=== PATIENT | female | born 1945 | race Caucasian/White ===

== ENCOUNTER → 2019-02-26 | Outpatient (REF) | payer MEDICARE, OTHER | LOC: M SFHCPLAZ 16:52 | PROVIDERS: ATTEND Dermatology | DX: D04.5 Carcinoma in situ of skin of trunk (principal); C44.529 Squamous cell carcinoma of skin of other part of trunk; C44.519 Basal cell carcinoma of skin of other part of trunk ==

== ENCOUNTER → 2019-06-14 | Outpatient (REF) | payer MEDICARE, OTHER | LOC: M LAB REF 18:50 | PROVIDERS: ATTEND Dermatology | DX: L90.5 Scar conditions and fibrosis of skin (principal) ==

== ENCOUNTER → 2019-07-20 | Outpatient (REF) | payer MEDICARE, OTHER | LOC: M LAB REF 19:01 | PROVIDERS: ATTEND Dermatology | DX: C44.529 Squamous cell carcinoma of skin of other part of trunk (principal) ==

== ENCOUNTER 2022-04-02 10:07 | Inpatient (IN) | payer MEDICARE, OTHER ==
[~2022-04-02] VITALS: Ht 165.1 cm; Wt 66.1 kg
[2022-04-02 11:17] LABS: BASO # 0.1 10^3/uL (0.0-0.2); BASO % 0.3 % (0.0-1.0); EOS % 0.1 % (0.0-3.0); HEMATOCRIT 45.3 % (36.0-47.0); LYMPH # 1.3 10^3/uL (1.5-5.0); LYMPH % 7.4 % (24.0-44.0); MEAN CORPUSCULAR HEMOGLOBIN 32.7 pg (27.0-33.0); MEAN CORPUSCULAR HGB CONC 35.3 g/dl (32.0-36.5); MEAN CORPUSCULAR VOLUME 92.6 fl (80.0-96.0); MONO # 1.4 10^3/uL (0.0-0.8); MONO % 7.6 % (2.0-8.0); NEUTROPHILS # 15.1 10^3/uL (1.5-8.5); NEUTROPHILS % 83.9 % (36.0-66.0); PLATELET COUNT, AUTOMATED 165 10^3/uL (150-450); RED BLOOD COUNT 4.89 10^6/uL (4.00-5.40)
[2022-04-02 11:28] LABS: INR 1.07; PROTHROMBIN TIME 14.3 SECONDS (12.7-14.5)
[2022-04-02 11:29] LABS: PARTIAL THROMBOPLASTIN TIME 30.9 SECONDS (25.9-37.0)
[2022-04-02 11:55] LABS: CK-MB VALUE MASS 2.3 NG/ML (<3.6); MB/CK RELATIVE INDEX 0.93 (< OR =4)
[2022-04-02 11:55] LABS: ALBUMIN 3.5 GM/DL (3.2-5.2); BILIRUBIN,DIRECT 0.3 MG/DL (0.0-0.2); BILIRUBIN,TOTAL 0.9 MG/DL (0.2-1.0); CALCIUM LEVEL 9.2 MG/DL (8.8-10.2); GLOMERULAR FILTRATION RATE 57.4 (>39); POTASSIUM SERUM 3.1 MEQ/L (3.5-5.1); TOTAL PROTEIN 7.5 GM/DL (6.4-8.2)
[2022-04-02 12:09] LABS: RSV AMPLIFICATION NEGATIVE (NEGATIVE)
[2022-04-02] MEDS ORDERED: ONDANSETRON 4MG 2ML VIAL IV ONE (12:15)
[2022-04-02 12:34] LABS: CK-MB VALUE MASS 2.6 NG/ML (<3.6); MB/CK RELATIVE INDEX 1.05 (< OR =4)
[2022-04-02] MEDS ORDERED: ISOVUE-370 76% 100ML VIAL As Ordered ONE (12:34)
[2022-04-02] MEDS ORDERED: PROMETHAZINE 25MG/ML 1ML VIAL IV ONE (13:55)
[2022-04-02] MEDS ORDERED: cefTRIAXone SOD 2 GM in D5W MINI-BAG PLUS 50 ML IV ONE (15:00)
[2022-04-02] MEDS ORDERED: NS 1,000 ML IV ONE (15:20)
[2022-04-02] MEDS ORDERED: PRAV40TA2 PO (16:49)
[2022-04-02] MEDS ORDERED: ALBU8.5H INH (16:49)
[2022-04-02] MEDS ORDERED: LABE100T6 PO (16:49)
[2022-04-02] MEDS ORDERED: BENA-8 PO (16:49)
[2022-04-02] MEDS ORDERED: POTA10CA32 PO (16:49)
[2022-04-02] MEDS ORDERED: PARO20TA3 PO (16:49)
[2022-04-02] MEDS ORDERED: BENA1TAB24 PO (16:49)
[2022-04-02] MEDS ORDERED: HOME MED LIST COMPLETE! XX SCH (16:50)
[2022-04-02] MEDS ORDERED: MOM 30ML SUSPENSION UDC PO PRN (17:15)
[2022-04-02] MEDS ORDERED: ACETAMINOPHEN TAB 650MG DOSE (2X325MG) PO PRN (17:15)
[2022-04-02] MEDS ORDERED: MAALOX 30 ML SUSP *UDC PO PRN (17:15)
[2022-04-02] MEDS ORDERED: NS IV ONE (17:15)
[2022-04-02] MEDS ORDERED: LEVALBUTEROL 1.25 MG/0.5 ML CONCENTRATE NEB INH PRN (17:25)
[2022-04-02] MEDS ORDERED: hydrALAZINE 20MG/ML 1ML VIAL (J0360 PER 20MG) IV PRN (17:25)
[2022-04-02] MEDS ORDERED: ONDANSETRON 4MG 2ML VIAL IV PRN (18:05)
[2022-04-02] MEDS ORDERED: LABETALOL 100MG/20ML VIAL IV STA (18:34)
[2022-04-02 18:40] LABS: ABG BASE EXCESS -0.6 (-2.0-2.0); ABG HCO3 26.8 MEQ/L (22.0-26.0); ABG O2 SATURATION 88.5 % (95.0-99.0); ABG PARTIAL PRESSURE CO2 54.4 mmHg (35.0-45.0); ABG PARTIAL PRESSURE O2 58.1 mmHg (75.0-100.0); ABG STANDARD HCO3 23.7 MEQ/L (22.0-26.0); ABG TOTAL CO2 28.4 MEQ/L (23.0-31.0)
[2022-04-02] MEDS: PIPERACILLIN/TAZOBACTAM SOD 3.375 GM in D5W MINI-BAG PLUS 50 ML IV SCH ×2 (18:51→23:59)
[2022-04-02] MEDS ORDERED: POTASSIUM CHLORIDE 10MEQ SR TABLET PO ONE (19:00)
[2022-04-02] MEDS ORDERED: methylPREDNISolone 125MG 2ML VIAL IV ONE (19:00)
[2022-04-02] MEDS ORDERED: ASPIRIN 81 MG CHEW TABLET PO ONE (19:05)
[2022-04-02] MEDS: LEVALBUTEROL 1.25 MG/0.5 ML CONCENTRATE NEB INH SCH ×2 (19:08→23:51)
[2022-04-02] MEDS: NS 1,000 ML IV SCH (19:15)
[2022-04-02] MEDS: KCL 10MEQ/100ML SWI (KRUN) 10 MEQ in IV 1 EA IV SCH ×3 (19:19→21:46)
[2022-04-02 19:47] LABS: MB/CK RELATIVE INDEX 1.41 (< OR =4)
[2022-04-02] MEDS ORDERED: DOXYCYCLINE HYCLATE 100 MG in D5W MINI-BAG PLUS 100 ML IV SCH (20:00)
[2022-04-02] MEDS ORDERED: methylPREDNISolone 125MG 2ML VIAL IV SCH (20:00)
[2022-04-02] MEDS ORDERED: LABETALOL 100MG TAB PO SCH (21:00)
[2022-04-02] MEDS: guaiFENesin ER 600 MG TAB PO SCH (21:45)
[2022-04-02] MEDS: DOCUSATE SODIUM 100MG CAPSULE PO SCH (21:45)
[2022-04-02 21:59] LABS: CK-MB VALUE MASS 9.1 NG/ML (<3.6); MB/CK RELATIVE INDEX 2.74 (< OR =4)
[2022-04-02 22:06] LABS: ABG BASE EXCESS -1.2 (-2.0-2.0); ABG HCO3 24.4 MEQ/L (22.0-26.0); ABG O2 SATURATION 94.1 % (95.0-99.0); ABG PARTIAL PRESSURE CO2 43.9 mmHg (35.0-45.0); ABG PARTIAL PRESSURE O2 70.1 mmHg (75.0-100.0); ABG STANDARD HCO3 23.4 MEQ/L (22.0-26.0); ABG TOTAL CO2 25.8 MEQ/L (23.0-31.0); ABG pH (ARTERIAL) 7.363 UNITS (7.350-7.450)
[2022-04-02 22:30] VITALS: BP 126/65
[2022-04-02 23:00] VITALS: BP 128/60
[2022-04-03] VITALS (12 sets, daily range): BP systolic 110–162; BP diastolic 58–74; O2SAT 90
[2022-04-03 01:23] LABS: MB/CK RELATIVE INDEX 4.4 (< OR =4)
[2022-04-03] MEDS ORDERED: HEPARIN SOD (PORCINE) 5000UNITS/ML 1ML VIAL/SYRINGE IV PRN (01:55)
[2022-04-03] MEDS: methylPREDNISolone 125MG 2ML VIAL IV SCH ×2 (02:06→08:16)
[2022-04-03] MEDS ORDERED: HEPARIN SOD (PORCINE) 5000UNITS/ML 1ML VIAL/SYRINGE IV ONE (03:00)
[2022-04-03] MEDS ORDERED: HEPARIN DRIP 25,000 UNITS in IV 1 EA IV SCH (03:00)
[2022-04-03] MEDS: LEVALBUTEROL 1.25 MG/0.5 ML CONCENTRATE NEB INH SCH ×2 (03:15→07:18)
[2022-04-03] MEDS: NS 1,000 ML IV SCH (03:28)
[2022-04-03 04:14] LABS: BASO % 0.1 % (0.0-1.0); HEMATOCRIT 40.9 % (36.0-47.0); LYMPH # 1.2 10^3/uL (1.5-5.0); LYMPH % 8.5 % (24.0-44.0); MEAN CORPUSCULAR HEMOGLOBIN 32.2 pg (27.0-33.0); MEAN CORPUSCULAR HGB CONC 33.5 g/dl (32.0-36.5); MONO # 0.3 10^3/uL (0.0-0.8); MONO % 2.3 % (2.0-8.0); NEUTROPHILS # 12.1 10^3/uL (1.5-8.5); NEUTROPHILS % 88.6 % (36.0-66.0); PLATELET COUNT, AUTOMATED 138 10^3/uL (150-450); RED BLOOD COUNT 4.26 10^6/uL (4.00-5.40); WHITE BLOOD COUNT 13.7 10^3/uL (4.0-10.0)
[2022-04-03 04:25] LABS: HEMOGLOBIN 13.7 g/dl (12.0-15.5)
[2022-04-03 04:49] LABS: CK-MB VALUE MASS 15.5 NG/ML (<3.6); MB/CK RELATIVE INDEX 5.02 (< OR =4)
[2022-04-03 04:52] LABS: CALCIUM LEVEL 8.3 MG/DL (8.8-10.2); CREATININE FOR GFR 1.11 MG/DL (0.55-1.30); GLOMERULAR FILTRATION RATE 50.9 (>39); MAGNESIUM LEVEL 1.9 MG/DL (1.8-2.4); POTASSIUM SERUM 3.6 MEQ/L (3.5-5.1)
[2022-04-03] MEDS: PIPERACILLIN/TAZOBACTAM SOD 3.375 GM in D5W MINI-BAG PLUS 50 ML IV SCH (06:19)
[2022-04-03 07:23] LABS: CK-MB VALUE MASS 16.8 NG/ML (<3.6); MB/CK RELATIVE INDEX 5.2 (< OR =4)
[2022-04-03] MEDS ORDERED: METH40VIAL IM (07:40)
[2022-04-03] MEDS ORDERED: ZOSY1SOL5 IV (07:40)
[2022-04-03] MEDS ORDERED: MUCI600T31 PO (07:40)
[2022-04-03] MEDS ORDERED: DOXY-342 PO (07:40)
[2022-04-03] MEDS ORDERED: ATOR1TAB21 PO (07:40)
[2022-04-03] MEDS ORDERED: ASPI81CH8 PO (07:40)
[2022-04-03] MEDS ORDERED: METO1TAB7 PO (07:40)
[2022-04-03] MEDS: guaiFENesin ER 600 MG TAB PO SCH (08:15)
[2022-04-03] MEDS: DOCUSATE SODIUM 100MG CAPSULE PO SCH (08:15)
[2022-04-03] MEDS ORDERED: ATORVASTATIN 20 MG TAB PO SCH (09:00)
[2022-04-03] MEDS ORDERED: PARoxetine 20MG TABLET PO SCH (09:00)
[2022-04-03] MEDS ORDERED: METOPROLOL SUCC (TopROL XL) 50MG **XL** TAB PO SCH (09:00)
[2022-04-03] MEDS ORDERED: PRAVASTATIN 20 MG TAB PO SCH (09:00)
[2022-04-03] MEDS ORDERED: ENOXAPARIN 40MG/0.4ML SYRINGE (J1650 PER 10MG) SC SCH (09:00)
[2022-04-03] MEDS ORDERED: ASPIRIN 81 MG CHEW TABLET PO SCH (09:00)
[2022-04-03 10:11] LABS: CK-MB VALUE MASS 15.6 NG/ML (<3.6); MB/CK RELATIVE INDEX 5.32 (< OR =4)
== END 2022-04-03 09:46 | disposition short-term general hospital (02) | DRG 193 ==
LOC: M ED 10:07 → M ED INP 17:11 → ENRESERV 20:31 → M ICU 21:20
PROVIDERS: ADMIT Internal Medicine; ATTEND Internal Medicine
DX: J18.9 Pneumonia, unspecified organism (principal); I21.4 Non-ST elevation (NSTEMI) myocardial infarction; J44.1 Chronic obstructive pulmonary disease with (acute) exacerbation; J44.0 Chronic obstructive pulmonary disease with (acute) lower respiratory infection; E87.6 Hypokalemia; R09.02 Hypoxemia; I10 Essential (primary) hypertension; R00.0 Tachycardia, unspecified; E78.5 Hyperlipidemia, unspecified; L40.9 Psoriasis, unspecified; R11.2 Nausea with vomiting, unspecified; I16.0 Hypertensive urgency; Z79.899 Other long term (current) drug therapy; Z88.8 Allergy status to other drugs, medicaments and biological substances; Z87.891 Personal history of nicotine dependence

== ENCOUNTER 2022-07-26 17:51 | Emergency (ER) | payer MEDICARE, OTHER ==
[~2022-07-26] VITALS: Ht 162.6 cm; Wt 65.0 kg
[~2022-07-26 17:51] MED LIST: ALBU8.5H INH; ASPI81CH8 PO; ATOR1TAB21 PO; BENA-8 PO; BENA1TAB24 PO; DOXY100C81 PO; LABE100T6 PO; METH40VIAL IM; METO1TAB7 PO; MUCI600T31 PO; PARO20TA3 PO; POTA10CA33 PO; PRAV40TA2 PO; ZOSY1SOL5 IV
[2022-07-26] MEDS ORDERED: IPRATROPIUM 0.5MG/ALBUTEROL 2.5MG INH SOL UD 3ML (DUONEB) NEB ONE (19:45)
[2022-07-26] MEDS ORDERED: valACYclovir HCL 500 MG TAB PO ONE (19:45)
[2022-07-26 20:53] LABS: BASO # 0.1 10^3/uL (0.0-0.2); BASO % 0.6 % (0.0-1.0); EOS % 0.4 % (0.0-3.0); HEMATOCRIT 46.9 % (36.0-47.0); HEMOGLOBIN 16.3 g/dl (12.0-15.5); LYMPH # 2.2 10^3/uL (1.5-5.0); LYMPH % 22.5 % (24.0-44.0); MEAN CORPUSCULAR HEMOGLOBIN 30.9 pg (27.0-33.0); MEAN CORPUSCULAR HGB CONC 34.8 g/dl (32.0-36.5); MONO # 1.2 10^3/uL (0.0-0.8); MONO % 12.3 % (2.0-8.0); NEUTROPHILS # 6.3 10^3/uL (1.5-8.5); NEUTROPHILS % 63.6 % (36.0-66.0); PLATELET COUNT, AUTOMATED 120 10^3/uL (150-450); RED BLOOD COUNT 5.27 10^6/uL (4.00-5.40); WHITE BLOOD COUNT 9.9 10^3/uL (4.0-10.0)
[2022-07-26 21:20] LABS: CK-MB VALUE MASS < 1.0 NG/ML (<3.6)
[2022-07-26 21:21] LABS: MAGNESIUM LEVEL 1.8 MG/DL (1.8-2.4)
[2022-07-26 21:23] LABS: BLOOD UREA NITROGEN 11 MG/DL (9-23); CALCIUM LEVEL 8.9 MG/DL (8.3-10.6); CARBON DIOXIDE LEVEL 28 MMOL/L (20-31); CHLORIDE LEVEL 103 MMOL/L (98-107); CPK CREATINE PHOSPHOKINASE 21 U/L (34-145); CREATININE FOR GFR 1.17 MG/DL (0.55-1.30); GLOMERULAR FILTRATION RATE 47.9 (>39); GLUCOSE, FASTING 109 MG/DL (74-106); MB/CK RELATIVE INDEX 4.76 (< OR =4); SODIUM LEVEL 139 MMOL/L (136-145)
[2022-07-26 21:38] LABS: APPEARANCE, URINE MANUAL CLEAR (CLEAR); COLOR, URINE MANUAL YELLOW (YELLOW)
[2022-07-26 21:40] LABS: BILIRUBIN, URINE MANUAL NEGATIVE (NEGATIVE); BLOOD URINE MANUAL NEGATIVE (NEGATIVE); GLUCOSE, URINE (UA) MANUAL NEGATIVE (NEGATIVE); KETONE, URINE MANUAL NEGATIVE (NEGATIVE); LEUKOCYTE ESTERASE, URINE MAN TRACE (NEGATIVE); NITRITE, URINE MANUAL NEGATIVE (NEGATIVE); PROTEIN, URINE MANUAL 1+ mg/dL (NEGATIVE); UROBILINOGEN, URINE MANUAL NORMAL (NORMAL)
[2022-07-26 21:48] LABS: RBC, URINE 0-1 /hpf (0-3); SQUAMOUS EPITHELIAL CELL URINE LARGE AMOUNT /hpf (SMALL AMT); WBC, URINE 15-20 /hpf (0-3)
[2022-07-26 21:49] LABS: BACTERIA, URINE MOD AMOUNT; HYALINE CAST, URINE TNTC /lpf (0-1); MUCUS, URINE LARGE AMOUNT (NEGATIVE)
[2022-07-26] MEDS ORDERED: ONDANSETRON 4MG 2ML VIAL IV ONE (22:10)
[2022-07-26] MEDS ORDERED: predniSONE 20 MG TAB PO ONE (22:15)
[2022-07-26] MEDS ORDERED: AZITHROMYCIN 250MG TABLET PO ONE (22:15)
[2022-07-26] MEDS ORDERED: NITR-67 PO (22:26)
[2022-07-26] MEDS ORDERED: PRED20TA PO (22:26)
[2022-07-26] MEDS ORDERED: AZIT500T5 PO (22:26)
[2022-07-26] MEDS ORDERED: VALA1TAB5 PO (22:26)
[2022-07-26 22:38] VITALS: BP 143/62
== END 2022-07-26 22:40 | disposition home or self-care (01) ==
LOC: M ED 17:51
DX: J20.9 Acute bronchitis, unspecified (principal); B02.9 Zoster without complications; I25.10 Atherosclerotic heart disease of native coronary artery without angina pectoris; I25.2 Old myocardial infarction; I10 Essential (primary) hypertension; J44.9 Chronic obstructive pulmonary disease, unspecified; E78.5 Hyperlipidemia, unspecified; K57.92 Diverticulitis of intestine, part unspecified, without perforation or abscess without bleeding; F32.9 Major depressive disorder, single episode, unspecified; Z95.5 Presence of coronary angioplasty implant and graft; F17.200 Nicotine dependence, unspecified, uncomplicated; Z79.899 Other long term (current) drug therapy; Z88.8 Allergy status to other drugs, medicaments and biological substances
CPT/HCPCS: 71045; 80048; 81000; 82550; 82553; 83735; 84484; 85025; 87486; 87581; 87633; 87798; 93005; 94640; 96374; 99284; J2405; J7512

== ENCOUNTER 2022-10-21 21:07 | Emergency (ER) | payer MEDICARE, OTHER ==
[~2022-10-21] VITALS: Ht 162.6 cm; Wt 63.6 kg
[~2022-10-21 21:07] MED LIST changes: +AZIT500T5 PO; +NITR-67 PO; +PRED20TA PO; +VALA1TAB5 PO
[2022-10-22] MEDS ORDERED: LIDOCAINE 1% MDV 20ML VIAL SC ONE (02:00)
[2022-10-22] MEDS ORDERED: BOOSTRIX/ADACEL VACCINE (DIPHTH/PERTUSS/ACELL/TETANUS) 0.5ML SYR IM.IMMUN ONE (02:00)
[2022-10-22 02:38] VITALS: BP 160/72
== END 2022-10-22 02:39 | disposition home or self-care (01) ==
LOC: M ED 21:07
DX: S61.011A Laceration without foreign body of right thumb without damage to nail, initial encounter (principal); W26.0XXA Contact with knife, initial encounter; Y92.000 Kitchen of unspecified non-institutional (private) residence as the place of occurrence of the external cause; Y93.G1 Activity, food preparation and clean up; Y99.8 Other external cause status; I25.10 Atherosclerotic heart disease of native coronary artery without angina pectoris; I25.2 Old myocardial infarction; I10 Essential (primary) hypertension; J44.9 Chronic obstructive pulmonary disease, unspecified; F41.9 Anxiety disorder, unspecified; F17.200 Nicotine dependence, unspecified, uncomplicated

== ENCOUNTER → 2023-09-18 | Outpatient (REF) | payer MEDICARE, OTHER ==
[~2023-09-18] MED LIST changes: -DOXY100C81 PO; +DOXY100C82 PO; -POTA10CA33 PO; +POTA10CA60 PO
[2023-09-18 17:10] LABS: HEMATOCRIT 48.6 % (36.0-47.0); HEMOGLOBIN 16.3 g/dl (12.0-15.5); MEAN CORPUSCULAR HEMOGLOBIN 30.9 pg (27.0-33.0); MEAN CORPUSCULAR HGB CONC 33.5 g/dl (32.0-36.5); PLATELET COUNT, AUTOMATED 203 10^3/uL (150-450); RED BLOOD COUNT 5.28 10^6/uL (4.00-5.40); WHITE BLOOD COUNT 15.5 10^3/uL (4.0-10.0)
[2023-09-18 17:35] LABS: ALBUMIN 3.6 G/DL (3.2-5.2); ALKALINE PHOSPHATASE 110 U/L (46-116); ALT/SGPT 13 U/L (7.0-40); AST/SGOT 12 U/L (<34); BILIRUBIN,TOTAL 0.7 MG/DL (0.3-1.2); BLOOD UREA NITROGEN 6 MG/DL (9-23); CALCIUM LEVEL 8.7 MG/DL (8.3-10.6); CARBON DIOXIDE LEVEL 30 MMOL/L (20-31); CHLORIDE LEVEL 102 MMOL/L (98-107); CREATININE FOR GFR 0.85 MG/DL (0.55-1.30); GLOMERULAR FILTRATION RATE > 60.0 (>39); GLUCOSE, FASTING 132 MG/DL (74-106); POTASSIUM SERUM 3.7 MMOL/L (3.5-5.1); SODIUM LEVEL 139 MMOL/L (136-145); TOTAL PROTEIN 7.3 G/DL (5.7-8.2)
== END ==
LOC: M LABWUC 16:28
PROVIDERS: ATTEND Family Medicine
DX: R11.2 Nausea with vomiting, unspecified (principal)

== ENCOUNTER 2023-09-19 23:49 | Inpatient (IN) | payer MEDICARE, OTHER ==
[~2023-09-19] VITALS: Ht 162.6 cm; Wt 66.7 kg
[2023-09-20] VITALS (16 sets, daily range): BP systolic 102–143; BP diastolic 57–99; TEMP 97.9–98.1; O2SAT 83–100
[2023-09-20] MEDS: IPRATROPIUM 0.5MG/ALBUTEROL 2.5MG INH SOL UD 3ML (DUONEB) NEB PRN (00:10)
[2023-09-20 00:24] LABS: ABG O2 SATURATION 99.2 % (95.0-99.0); ABG PARTIAL PRESSURE O2 201.2 mmHg (75.0-100.0); ABG STANDARD HCO3 22.1 MMOL/L. (22.0-26.0); ABG TOTAL CO2 26.7 MMOL/L (23.0-31.0); ABG pH (ARTERIAL) 7.267 UNITS (7.350-7.450)
[2023-09-20 00:28] LABS: BASO % 0.2 % (0.0-1.0); HEMATOCRIT 44.4 % (36.0-47.0); HEMOGLOBIN 14.8 g/dl (12.0-15.5); LYMPH # 1.5 10^3/uL (1.5-5.0); LYMPH % 8.2 % (24.0-44.0); MEAN CORPUSCULAR HEMOGLOBIN 31.2 pg (27.0-33.0); MEAN CORPUSCULAR HGB CONC 33.3 g/dl (32.0-36.5); MEAN CORPUSCULAR VOLUME 93.7 fl (80.0-96.0); MONO # 1.7 10^3/uL (0.0-0.8); MONO % 9.3 % (2.0-8.0); NEUTROPHILS % 81.5 % (36.0-66.0); PLATELET COUNT, AUTOMATED 152 10^3/uL (150-450); RED BLOOD COUNT 4.74 10^6/uL (4.00-5.40); WHITE BLOOD COUNT 18.4 10^3/uL (4.0-10.0)
[2023-09-20 01:07] LABS: ALBUMIN 2.9 G/DL (3.2-5.2); BILIRUBIN,DIRECT 0.3 MG/DL (<0.4); BILIRUBIN,TOTAL 0.6 MG/DL (0.3-1.2); CALCIUM LEVEL 8.4 MG/DL (8.3-10.6); CK-MB VALUE MASS 18.3 NG/ML (<3.6); CREATININE FOR GFR 1.48 MG/DL (0.55-1.30); GLOMERULAR FILTRATION RATE 36.4 (>39); MB/CK RELATIVE INDEX 1.29 (< OR =4); POTASSIUM SERUM 4.1 MMOL/L (3.5-5.1); TOTAL PROTEIN 6.6 G/DL (5.7-8.2)
[2023-09-20] MEDS: PIPERACILLIN/TAZOBACTAM SOD 4.5 GM in D5W MINI-BAG PLUS 50 ML IV ONE (01:12)
[2023-09-20] MEDS: NS 2,050 ML in IV 1 EA IV ONE (01:13)
[2023-09-20] MEDS ORDERED: ISOVUE-370 76% 100ML VIAL As Ordered ONE (01:37)
[2023-09-20 02:10] LABS: ABG BASE EXCESS -3.2 (-2.0-2.0); ABG HCO3 24.5 MMOL/L (22.0-26.0); ABG O2 SATURATION 97.9 % (95.0-99.0); ABG PARTIAL PRESSURE CO2 55.7 mmHg (35.0-45.0); ABG STANDARD HCO3 21.9 MMOL/L. (22.0-26.0); ABG TOTAL CO2 26.3 MMOL/L (23.0-31.0); ABG pH (ARTERIAL) 7.262 UNITS (7.350-7.450)
[2023-09-20 02:34] LABS: CK-MB VALUE MASS 13.9 NG/ML (<3.6)
[2023-09-20 02:36] LABS: MB/CK RELATIVE INDEX 1.22 (< OR =4)
[2023-09-20] MEDS: NS 1,000 ML IV ONE (03:00)
[2023-09-20 03:45] LABS: ABG pH (ARTERIAL) 7.288 UNITS (7.350-7.450)
[2023-09-20 03:46] LABS: ABG BASE EXCESS -1.6 (-2.0-2.0); ABG HCO3 25.7 MMOL/L (22.0-26.0); ABG O2 SATURATION 90.3 % (95.0-99.0); ABG PARTIAL PRESSURE O2 64.1 mmHg (75.0-100.0); ABG TOTAL CO2 27.4 MMOL/L (23.0-31.0)
[2023-09-20] MEDS ORDERED: ALBUTEROL SULFATE 2.5MG/0.5ML INH NEB SOLN NEB PRN (04:30)
[2023-09-20] MEDS ORDERED: AZITHROMYCIN 250MG TABLET PO SCH (06:00)
[2023-09-20] MEDS: cefTRIAXone SOD 1 GM in D5W MINI-BAG PLUS 50 ML IV SCH (06:09)
[2023-09-20 07:38] LABS: BASO % 0.1 % (0.0-1.0); HEMATOCRIT 36.5 % (36.0-47.0); LYMPH % 8.1 % (24.0-44.0); MEAN CORPUSCULAR HEMOGLOBIN 31.2 pg (27.0-33.0); MEAN CORPUSCULAR HGB CONC 33.7 g/dl (32.0-36.5); MEAN CORPUSCULAR VOLUME 92.6 fl (80.0-96.0); MONO # 0.4 10^3/uL (0.0-0.8); MONO % 3.4 % (2.0-8.0); NEUTROPHILS # 10.5 10^3/uL (1.5-8.5); NEUTROPHILS % 87.9 % (36.0-66.0); PLATELET COUNT, AUTOMATED 108 10^3/uL (150-450); RED BLOOD COUNT 3.94 10^6/uL (4.00-5.40)
[2023-09-20 07:39] LABS: HEMOGLOBIN 12.3 g/dl (12.0-15.5)
[2023-09-20 07:54] LABS: ALBUMIN 2.2 G/DL (3.2-5.2); BILIRUBIN,DIRECT 0.1 MG/DL (<0.4); BILIRUBIN,TOTAL 0.2 MG/DL (0.3-1.2); CREATININE FOR GFR 1.27 MG/DL (0.55-1.30); GLOMERULAR FILTRATION RATE 43.4 (>39); MAGNESIUM LEVEL 1.7 MG/DL (1.8-2.4); TOTAL PROTEIN 5.1 G/DL (5.7-8.2)
[2023-09-20] MEDS: IPRATROPIUM 0.5MG/ALBUTEROL 2.5MG INH SOL UD 3ML (DUONEB) NEB SCH (08:09)
[2023-09-20] MEDS: methylPREDNISolone 125MG 2ML VIAL IV STA (08:20)
[2023-09-20] MEDS: AZITHROMYCIN INJ 500 MG, VIAL MATE ADAPTER 1 EACH in NS 250 ML IV SCH (08:20)
[2023-09-20] MEDS: OSELTAMIVIR PHOSPHATE 75 MG CAP (TAMIFLU) PO ONE (08:58)
[2023-09-20] MEDS ORDERED: TREL1AER PO (11:37)
[2023-09-20] MEDS ORDERED: CLOP75TA2 PO (11:37)
[2023-09-20] MEDS ORDERED: ONDA-83 PO (11:37)
[2023-09-20] MEDS ORDERED: CARV12.5 PO (11:37)
[2023-09-20] MEDS ORDERED: ENAL1TAB52 PO (11:37)
[2023-09-20] MEDS ORDERED: ATOR80TA59 PO (11:37)
[2023-09-20] MEDS ORDERED: OMEP40CA5 PO (11:37)
[2023-09-20] MEDS ORDERED: AMLO1TAB25 PO (11:37)
[2023-09-20] MEDS: methylPREDNISolone 125MG 2ML VIAL IV SCH (17:04)
[2023-09-20] MEDS: OSELTAMIVIR PHOSPHATE 30MG CAPSULE PO SCH (20:12)
[2023-09-20] MEDS: HEPARIN SOD (PORCINE) 5000UNITS/ML 1ML VIAL/SYRINGE SQ SCH (20:12)
[2023-09-21] VITALS (11 sets, daily range): BP systolic 119–145; BP diastolic 58–81; TEMP 96.9–98.3; O2SAT 88–98
[2023-09-21 05:13] LABS: HEMATOCRIT 40.8 % (36.0-47.0); HEMOGLOBIN 13.6 g/dl (12.0-15.5); MEAN CORPUSCULAR HEMOGLOBIN 30.9 pg (27.0-33.0); MEAN CORPUSCULAR HGB CONC 33.3 g/dl (32.0-36.5); MEAN CORPUSCULAR VOLUME 92.7 fl (80.0-96.0); PLATELET COUNT, AUTOMATED 128 10^3/uL (150-450); WHITE BLOOD COUNT 13.8 10^3/uL (4.0-10.0)
[2023-09-21 05:38] LABS: BLOOD UREA NITROGEN 24 MG/DL (9-23); CALCIUM LEVEL 7.5 MG/DL (8.3-10.6); CARBON DIOXIDE LEVEL 29 MMOL/L (20-31); CHLORIDE LEVEL 109 MMOL/L (98-107); GLOMERULAR FILTRATION RATE > 60.0 (>39); GLUCOSE, FASTING 164 MG/DL (74-106); POTASSIUM SERUM 3.7 MMOL/L (3.5-5.1); SODIUM LEVEL 144 MMOL/L (136-145)
[2023-09-21] MEDS: ENALAPRIL MALEATE 10 MG TAB PO SCH (09:00)
[2023-09-21] MEDS: PARoxetine 20MG TABLET PO SCH (09:00)
[2023-09-21 09:14] LABS: ABG HCO3 27.7 MMOL/L (22.0-26.0); ABG O2 SATURATION 90.7 % (95.0-99.0); ABG PARTIAL PRESSURE CO2 52.6 mmHg (35.0-45.0); ABG PARTIAL PRESSURE O2 60.4 mmHg (75.0-100.0); ABG STANDARD HCO3 25.2 MMOL/L. (22.0-26.0); ABG TOTAL CO2 29.4 MMOL/L (23.0-31.0)
[2023-09-21] MEDS ORDERED: DOXYCYCLINE HYCLATE 100 MG in D5W MINI-BAG PLUS 100 ML IV SCH (10:15)
[2023-09-21] MEDS: DOXYCYCLINE HYCLATE 100MG TABLET PO SCH (11:25)
[2023-09-21] MEDS: CARVedilol 12.5 MG TAB PO SCH (11:26)
[2023-09-21] MEDS: CLOPIDOGREL 75 MG TAB PO SCH (11:26)
[2023-09-21] MEDS: predniSONE 20 MG TAB PO SCH (11:27)
[2023-09-21] MEDS: PANTOPRAZOLE 40MG TAB (PROTONIX) PO SCH (11:27)
[2023-09-21] MEDS: ATORVASTATIN 20 MG TAB PO SCH (20:49)
[2023-09-21] MEDS: BENZONATATE 100MG CAPSULE PO PRN (22:21)
[2023-09-22] VITALS (8 sets, daily range): BP systolic 126–144; BP diastolic 63–77; TEMP 97–98; O2SAT 80–95
[2023-09-22 04:58] LABS: HEMATOCRIT 40.3 % (36.0-47.0); HEMOGLOBIN 13.4 g/dl (12.0-15.5); MEAN CORPUSCULAR HEMOGLOBIN 31.2 pg (27.0-33.0); MEAN CORPUSCULAR HGB CONC 33.3 g/dl (32.0-36.5); MEAN CORPUSCULAR VOLUME 93.7 fl (80.0-96.0); PLATELET COUNT, AUTOMATED 125 10^3/uL (150-450); WHITE BLOOD COUNT 12.1 10^3/uL (4.0-10.0)
[2023-09-22 05:23] LABS: BLOOD UREA NITROGEN 21 MG/DL (9-23); CALCIUM LEVEL 8.2 MG/DL (8.3-10.6); CARBON DIOXIDE LEVEL 34 MMOL/L (20-31); CHLORIDE LEVEL 107 MMOL/L (98-107); CREATININE FOR GFR 0.84 MG/DL (0.55-1.30); GLOMERULAR FILTRATION RATE > 60.0 (>39); GLUCOSE, FASTING 133 MG/DL (74-106); POTASSIUM SERUM 4.4 MMOL/L (3.5-5.1); SODIUM LEVEL 145 MMOL/L (136-145)
[2023-09-22 08:23] LABS: ABG BASE EXCESS 2.4 (-2.0-2.0); ABG HCO3 28.2 MMOL/L (22.0-26.0); ABG O2 SATURATION 88.3 % (95.0-99.0); ABG PARTIAL PRESSURE CO2 48.3 mmHg (35.0-45.0); ABG PARTIAL PRESSURE O2 53.4 mmHg (75.0-100.0); ABG STANDARD HCO3 26.4 MMOL/L. (22.0-26.0); ABG TOTAL CO2 29.7 MMOL/L (23.0-31.0); ABG pH (ARTERIAL) 7.384 UNITS (7.350-7.450)
[2023-09-23] VITALS (7 sets, daily range): BP systolic 126–148; BP diastolic 67–82; TEMP 97–98.1; O2SAT 90–96
[2023-09-23 05:40] LABS: HEMOGLOBIN 13.6 g/dl (12.0-15.5); MEAN CORPUSCULAR HEMOGLOBIN 30.8 pg (27.0-33.0); MEAN CORPUSCULAR HGB CONC 33.2 g/dl (32.0-36.5); PLATELET COUNT, AUTOMATED 123 10^3/uL (150-450); RED BLOOD COUNT 4.41 10^6/uL (4.00-5.40); WHITE BLOOD COUNT 10.4 10^3/uL (4.0-10.0)
[2023-09-23 06:09] LABS: BLOOD UREA NITROGEN 17 MG/DL (9-23); CARBON DIOXIDE LEVEL 36 MMOL/L (20-31); CHLORIDE LEVEL 110 MMOL/L (98-107); CREATININE FOR GFR 0.77 MG/DL (0.55-1.30); GLOMERULAR FILTRATION RATE > 60.0 (>39); GLUCOSE, FASTING 106 MG/DL (74-106); POTASSIUM SERUM 4.6 MMOL/L (3.5-5.1); SODIUM LEVEL 145 MMOL/L (136-145)
[2023-09-23] MEDS: methylPREDNISolone 125MG 2ML VIAL IV SCH (09:02)
[2023-09-23] MEDS: ENOXAPARIN 40MG/0.4ML SYRINGE (J1650 PER 10MG) SC SCH (09:02)
[2023-09-23] MEDS: TIOTROPIUM INHALER/CAPSULE (SPIRIVA) INH SCH (11:15)
[2023-09-23] MEDS: SYMBICORT 160/4.5MCG INHALER 6GM INH SCH (11:15)
[2023-09-23 11:31] LABS: ABG BASE EXCESS 5.6 (-2.0-2.0); ABG HCO3 31.3 MMOL/L (22.0-26.0); ABG O2 SATURATION 91.5 % (95.0-99.0); ABG PARTIAL PRESSURE CO2 49.3 mmHg (35.0-45.0); ABG PARTIAL PRESSURE O2 58.4 mmHg (75.0-100.0); ABG STANDARD HCO3 29.4 MMOL/L. (22.0-26.0); ABG TOTAL CO2 32.8 MMOL/L (23.0-31.0); ABG pH (ARTERIAL) 7.421 UNITS (7.350-7.450)
[2023-09-24] VITALS (11 sets, daily range): BP systolic 134–152; BP diastolic 64–84; TEMP 96.7–97.6; O2SAT 93–98
[2023-09-24 05:19] LABS: HEMATOCRIT 41.6 % (36.0-47.0); HEMOGLOBIN 14.2 g/dl (12.0-15.5); MEAN CORPUSCULAR HEMOGLOBIN 30.6 pg (27.0-33.0); MEAN CORPUSCULAR HGB CONC 34.1 g/dl (32.0-36.5); MEAN CORPUSCULAR VOLUME 89.7 fl (80.0-96.0); PLATELET COUNT, AUTOMATED 109 10^3/uL (150-450); RED BLOOD COUNT 4.64 10^6/uL (4.00-5.40)
[2023-09-24 05:40] LABS: BLOOD UREA NITROGEN 15 MG/DL (9-23); CARBON DIOXIDE LEVEL 37 MMOL/L (20-31); CHLORIDE LEVEL 104 MMOL/L (98-107); GLOMERULAR FILTRATION RATE > 60.0 (>39); GLUCOSE, FASTING 139 MG/DL (74-106); POTASSIUM SERUM 3.4 MMOL/L (3.5-5.1); SODIUM LEVEL 144 MMOL/L (136-145)
[2023-09-24] MEDS: POTASSIUM CHLORIDE 10MEQ SR TABLET PO ONE (09:00)
[2023-09-24 17:11] LABS: BODY FLUID CULTURE Not indicated. (.); LEGIONELLA ANTIGEN URINE Negative (Negative); ORGANISM ID Not indicated. (.); SPECIMEN SOURCE Urine (.); URINE STREP PNEUMONIAE ANTIGEN Positive (Negative)
[2023-09-24] MEDS: OSELTAMIVIR PHOSPHATE 75 MG CAP (TAMIFLU) PO SCH (21:11)
[2023-09-25] VITALS (11 sets, daily range): BP systolic 137–158; BP diastolic 66–85; TEMP 96.6–98.3; O2SAT 92–98
[2023-09-25 05:36] LABS: HEMATOCRIT 43.5 % (36.0-47.0); HEMOGLOBIN 14.9 g/dl (12.0-15.5); MEAN CORPUSCULAR HEMOGLOBIN 30.8 pg (27.0-33.0); MEAN CORPUSCULAR HGB CONC 34.3 g/dl (32.0-36.5); MEAN CORPUSCULAR VOLUME 89.9 fl (80.0-96.0); PLATELET COUNT, AUTOMATED 130 10^3/uL (150-450); RED BLOOD COUNT 4.84 10^6/uL (4.00-5.40); WHITE BLOOD COUNT 10.9 10^3/uL (4.0-10.0)
[2023-09-25 06:03] LABS: BLOOD UREA NITROGEN 20 MG/DL (9-23); CALCIUM LEVEL 8.1 MG/DL (8.3-10.6); CARBON DIOXIDE LEVEL 36 MMOL/L (20-31); CHLORIDE LEVEL 105 MMOL/L (98-107); CREATININE FOR GFR 0.66 MG/DL (0.55-1.30); GLOMERULAR FILTRATION RATE > 60.0 (>39); GLUCOSE, FASTING 139 MG/DL (74-106); POTASSIUM SERUM 3.5 MMOL/L (3.5-5.1); SODIUM LEVEL 145 MMOL/L (136-145)
[2023-09-25] MEDS: predniSONE 20 MG TAB PO SCH (09:24)
[2023-09-25] MEDS ORDERED: ALBU8.5H INH (12:03)
[2023-09-25] MEDS ORDERED: PRED20TA PO (12:03)
[2023-09-25] MEDS ORDERED: OSEL75CA2 PO (12:03)
[2023-09-25] MEDS ORDERED: DOXY100C3 PO (12:03)
[2023-09-25] MEDS ORDERED: CEFP200T PO (12:03)
[2023-09-25] MEDS ORDERED: PROT1TAB2 PO (13:15)
== END 2023-09-25 15:57 | disposition home or self-care (01) | DRG 177 ==
LOC: EDBD 23:49 → M ED 23:49 → M ED INP 09-20 05:27 → M ICU 09-20 07:36 → M PCU 09-21 15:22
PROVIDERS: ADMIT Internal Medicine; ATTEND Internal Medicine
PROC: B246ZZZ Ultrasonography of Right and Left Heart (ICD-10-PCS; principal; 2023-09-25)
DX: J10.00 Influenza due to other identified influenza virus with unspecified type of pneumonia (principal); J15.69 Pneumonia due to other Gram-negative bacteria; J96.02 Acute respiratory failure with hypercapnia; J96.01 Acute respiratory failure with hypoxia; I21.A1 Myocardial infarction type 2; J44.0 Chronic obstructive pulmonary disease with (acute) lower respiratory infection; E87.4 Mixed disorder of acid-base balance; J44.1 Chronic obstructive pulmonary disease with (acute) exacerbation; K21.9 Gastro-esophageal reflux disease without esophagitis; F39 Unspecified mood [affective] disorder; F17.210 Nicotine dependence, cigarettes, uncomplicated; I25.10 Atherosclerotic heart disease of native coronary artery without angina pectoris; I10 Essential (primary) hypertension; L40.9 Psoriasis, unspecified; E78.5 Hyperlipidemia, unspecified; Z79.82 Long term (current) use of aspirin; Z79.52 Long term (current) use of systemic steroids; Z79.899 Other long term (current) drug therapy; Z88.8 Allergy status to other drugs, medicaments and biological substances; Z95.5 Presence of coronary angioplasty implant and graft

== ENCOUNTER → 2023-11-17 | Outpatient (CLI) | payer MEDICARE ==
[~2023-11-17] MED LIST changes: +AMLO1TAB25 PO; +ATOR80TA59 PO; +CARV12.5 PO; +CEFP200T PO; +CLOP75TA2 PO; +DOXY100C3 PO; +ENAL1TAB52 PO; +OMEP40CA5 PO; +ONDA-83 PO; +OSEL75CA2 PO; -POTA10CA60 PO; +POTA10CA70 PO; +PROT1TAB2 PO; +TREL1AER PO
[2023-11-17 14:27] LABS: HEMOGLOBIN 15.9 g/dl (12.0-15.5); MEAN CORPUSCULAR HEMOGLOBIN 31.1 pg (27.0-33.0); MEAN CORPUSCULAR HGB CONC 33.8 g/dl (32.0-36.5); PLATELET COUNT, AUTOMATED 214 10^3/uL (150-450); RED BLOOD COUNT 5.11 10^6/uL (4.00-5.40)
[2023-11-17 14:29] LABS: APPEARANCE, URINE CLEAR (CLEAR); BACTERIA, URINE AUTO NEGATIVE (NEGATIVE); BILIRUBIN, URINE AUTO NEGATIVE (NEGATIVE); BLOOD, URINE BLOOD NEGATIVE (NEGATIVE); COLOR, URINE YELLOW (YELLOW); GLUCOSE, URINE (UA) AUTO NEGATIVE (NEGATIVE); KETONE, URINE AUTO NEGATIVE (NEGATIVE); LEUKOCYTE ESTERASE, URINE AUTO NEGATIVE (NEGATIVE); MUCUS, URINE SMALL (NEGATIVE); NITRITE, URINE AUTO NEGATIVE (NEGATIVE); PROTEIN, URINE AUTO 1+ mg/dL (NEGATIVE); RBC, URINE AUTO 1 /HPF (0-3); SPECIFIC GRAVITY URINE AUTO 1.006 (1.002-1.035); SQUAMOUS EPITHELIAL CELL UR AU 3 /HPF (0-6); UROBILINOGEN, URINE AUTO 0.2 mg/dL (0.0-2.0); WBC, URINE AUTO 1 /HPF (0-3)
[2023-11-17 14:41] LABS: ALKALINE PHOSPHATASE 106 U/L (46-116); ALT/SGPT 14 U/L (7.0-40); AST/SGOT 12 U/L (<34); BILIRUBIN,TOTAL 0.5 MG/DL (0.3-1.2); BLOOD UREA NITROGEN < 5 MG/DL (9-23); CALCIUM LEVEL 8.9 MG/DL (8.3-10.6); CARBON DIOXIDE LEVEL 30 MMOL/L (20-31); CHLORIDE LEVEL 105 MMOL/L (98-107); CHOLESTEROL LEVEL 165 MG/DL (<200); CHOLESTEROL RISK RATIO 4.36 (<5); CREATININE FOR GFR 0.76 MG/DL (0.55-1.30); GLOMERULAR FILTRATION RATE > 60.0 (>39); GLUCOSE, FASTING 104 MG/DL (74-106); HDL CHOLESTEROL 37.8 MG/DL (>40); LDL CHOLESTEROL 99.2 MG/DL (<100); NON-HDL-C 127.2 MG/DL; POTASSIUM SERUM 3.3 MMOL/L (3.5-5.1); SODIUM LEVEL 141 MMOL/L (136-145); TOTAL PROTEIN 6.7 G/DL (5.7-8.2); TRIGLYCERIDES LEVEL 140 MG/DL (<150)
[2023-11-17 15:03] LABS: CREATININE, URINE 76.4 MG/DL; MAU/CREAT RATIO 48.4 MCG/MG (0.0-30.0)
[2023-11-18 07:03] LABS: WHITE BLOOD COUNT 12.3 10^3/uL (4.0-10.0)
== END ==
LOC: M WUC 09:39
PROVIDERS: ATTEND Family Medicine
DX: E78.5 Hyperlipidemia, unspecified (principal); I25.10 Atherosclerotic heart disease of native coronary artery without angina pectoris; J44.9 Chronic obstructive pulmonary disease, unspecified

== ENCOUNTER 2024-05-31 00:38 | Emergency (ER) | payer MEDICARE ==
[~2024-05-31 00:38] MED LIST changes: +PIPE3.3729 IV; -ZOSY1SOL5 IV
[2024-05-31 01:00] LABS: BASO # 0.1 10^3/uL (0.0-0.2); BASO % 0.3 % (0.0-1.0); EOS # 0.1 10^3/uL (0.0-0.5); EOS % 0.4 % (0.0-3.0); HEMATOCRIT 43.8 % (36.0-47.0); HEMOGLOBIN 15.6 g/dl (12.0-15.5); LYMPH # 2.4 10^3/uL (1.5-5.0); LYMPH % 11.9 % (24.0-44.0); MEAN CORPUSCULAR HEMOGLOBIN 32.2 pg (27.0-33.0); MEAN CORPUSCULAR HGB CONC 35.6 g/dl (32.0-36.5); MEAN CORPUSCULAR VOLUME 90.5 fl (80.0-96.0); MONO # 1.2 10^3/uL (0.0-0.8); MONO % 6.1 % (2.0-8.0); NEUTROPHILS % 80.2 % (36.0-66.0); PLATELET COUNT, AUTOMATED 202 10^3/uL (150-450); RED BLOOD COUNT 4.84 10^6/uL (4.00-5.40); WHITE BLOOD COUNT 19.9 10^3/uL (4.0-10.0)
[2024-05-31] MEDS: KETOROLAC 30 MG/ML 1ML VIAL IV ONE (01:13)
[2024-05-31] MEDS: ONDANSETRON 4MG 2ML VIAL IV ONE (01:13)
[2024-05-31 01:14] LABS: INR 1.15; PARTIAL THROMBOPLASTIN TIME 26.7 SECONDS (24.8-34.2)
[2024-05-31 01:26] LABS: ALBUMIN 2.9 G/DL (3.2-5.2); ALKALINE PHOSPHATASE 104 U/L (35-104); ALT/SGPT 16 U/L (7.0-40); AST/SGOT 23 U/L (<34); BILIRUBIN,DIRECT 0.3 MG/DL (<0.4); BILIRUBIN,TOTAL 0.8 MG/DL (0.3-1.2); BLOOD UREA NITROGEN 6 MG/DL (9-23); CALCIUM LEVEL 8.8 MG/DL (8.3-10.6); CARBON DIOXIDE LEVEL 30 MMOL/L (20-31); CHLORIDE LEVEL 100 MMOL/L (98-107); CK-MB VALUE MASS < 1.0 NG/ML (<3.6); CPK CREATINE PHOSPHOKINASE 47 U/L (34-145); CREATININE FOR GFR 0.87 MG/DL (0.55-1.30); GLOMERULAR FILTRATION RATE > 60.0 (>39); GLUCOSE, FASTING 143 MG/DL (74-106); LIPASE 20 U/L (12-53); MB/CK RELATIVE INDEX 2.12 (< OR =4); POTASSIUM SERUM 3.7 MMOL/L (3.5-5.1); SODIUM LEVEL 141 MMOL/L (136-145)
[2024-05-31] MEDS ORDERED: ISOVUE-370 76% 100ML VIAL As Ordered ONE (02:19)
[2024-05-31 02:31] LABS: CK-MB VALUE MASS < 1.0 NG/ML (<3.6)
[2024-05-31 02:32] LABS: CPK CREATINE PHOSPHOKINASE 17 U/L (34-145); MB/CK RELATIVE INDEX 5.88 (< OR =4)
[2024-05-31] MEDS ORDERED: DOXY100C82 PO (04:36)
[2024-05-31] MEDS ORDERED: CEFD300C PO (04:36)
[2024-05-31] MEDS ORDERED: ONDA-282 PO (04:36)
[2024-05-31] MEDS: cefTRIAXone SOD 2 GM in DEXTROSE 5% (D5W) ADV/MINI-BAG 50 ML IV ONE (04:42)
[2024-05-31 05:22] VITALS: BP 137/76; TEMP 97.1; O2SAT 95
[2024-06-01] MEDS ORDERED: med rec comment (18:49)
== END 2024-05-31 05:27 | disposition home or self-care (01) ==
LOC: M ED 00:38 → EDBD 00:38 → M ED 05:27
DX: J18.9 Pneumonia, unspecified organism (principal); A08.39 Other viral enteritis; I25.119 Atherosclerotic heart disease of native coronary artery with unspecified angina pectoris; I10 Essential (primary) hypertension; J44.9 Chronic obstructive pulmonary disease, unspecified; F17.210 Nicotine dependence, cigarettes, uncomplicated; Z88.8 Allergy status to other drugs, medicaments and biological substances; Z79.51 Long term (current) use of inhaled steroids; Z79.2 Long term (current) use of antibiotics; Z79.52 Long term (current) use of systemic steroids; Z79.899 Other long term (current) drug therapy
CPT/HCPCS: 71045; 74177; 76705; 80048; 80076; 82550; 82553; 83605; 83690; 84484; 85025; 85610; 85730; 87486; 87581; 87633; 87798; 93005; 93041; 96365; 96375; 99285; J0696; J1885; J2405; Q9967

== ENCOUNTER 2024-06-01 13:41 | Inpatient (IN) | payer MEDICARE ==
[~2024-06-01] VITALS: Ht 162.6 cm; Wt 56.7 kg
[~2024-06-01 13:41] MED LIST changes: +CEFD300C PO; +ONDA-282 PO
[2024-06-01 14:14] LABS: BASO # 0.1 10^3/uL (0.0-0.2); BASO % 0.5 % (0.0-1.0); EOS # 0.1 10^3/uL (0.0-0.5); EOS % 0.6 % (0.0-3.0); HEMATOCRIT 41.5 % (36.0-47.0); HEMOGLOBIN 14.6 g/dl (12.0-15.5); LYMPH # 1.8 10^3/uL (1.5-5.0); LYMPH % 14.6 % (24.0-44.0); MEAN CORPUSCULAR HEMOGLOBIN 31.6 pg (27.0-33.0); MEAN CORPUSCULAR HGB CONC 35.2 g/dl (32.0-36.5); MEAN CORPUSCULAR VOLUME 89.8 fl (80.0-96.0); MONO # 0.8 10^3/uL (0.0-0.8); MONO % 6.5 % (2.0-8.0); NEUTROPHILS # 9.4 10^3/uL (1.5-8.5); NEUTROPHILS % 76.7 % (36.0-66.0); PLATELET COUNT, AUTOMATED 221 10^3/uL (150-450); RED BLOOD COUNT 4.62 10^6/uL (4.00-5.40); WHITE BLOOD COUNT 12.2 10^3/uL (4.0-10.0)
[2024-06-01] MEDS: NS 500 ML IV ONE (14:37)
[2024-06-01 14:46] LABS: ALBUMIN 2.8 G/DL (3.2-5.2); BILIRUBIN,DIRECT 0.2 MG/DL (<0.4); BILIRUBIN,TOTAL 0.4 MG/DL (0.3-1.2); CALCIUM LEVEL 8.7 MG/DL (8.3-10.6); CREATININE FOR GFR 0.97 MG/DL (0.55-1.30); GLOMERULAR FILTRATION RATE 59.1 (>39); POTASSIUM SERUM 2.9 MMOL/L (3.5-5.1); TOTAL PROTEIN 7.1 G/DL (5.7-8.2)
[2024-06-01 15:15] LABS: ABG BASE EXCESS 2.4 (-2.0-2.0); ABG HCO3 25.7 MMOL/L (22.0-26.0); ABG O2 SATURATION 96.5 % (95.0-99.0); ABG PARTIAL PRESSURE CO2 35.5 mmHg (35.0-45.0); ABG PARTIAL PRESSURE O2 81.6 mmHg (75.0-100.0); ABG STANDARD HCO3 26.6 MMOL/L. (22.0-26.0); ABG TOTAL CO2 26.8 MMOL/L (23.0-31.0); ABG pH (ARTERIAL) 7.478 UNITS (7.350-7.450)
[2024-06-01] MEDS: KCL 10MEQ/100ML SWI (KRUN) 10 MEQ in IV 1 EA IV ONE (17:54)
[2024-06-01] MEDS: ONDANSETRON 4MG 2ML VIAL IV ONE (18:07)
[2024-06-01] MEDS ORDERED: med rec comment (18:49)
[2024-06-01] MEDS ORDERED: HOME MED LIST COMPLETE! XX SCH (18:50)
[2024-06-01] MEDS ORDERED: MOM 30ML SUSPENSION UDC PO PRN (18:50)
[2024-06-01] MEDS ORDERED: ACETAMINOPHEN 325 MG TAB PO PRN (18:50)
[2024-06-01] MEDS ORDERED: MAALOX 30 ML SUSP *UDC PO PRN (18:50)
[2024-06-01] MEDS: PIPERACILLIN/TAZOBACTAM SOD 4.5 GM in DEXTROSE 5% (D5W) ADV/MINI-BAG 50 ML IV ONE (18:54)
[2024-06-01] MEDS ORDERED: ALBUTEROL SULFATE 2.5MG/0.5ML INH NEB SOLN NEB PRN (19:15)
[2024-06-01] MEDS: KCL 10MEQ/100ML SWI (KRUN) 10 MEQ in IV 1 EA IV SCH (20:09)
[2024-06-01] MEDS: DOXYCYCLINE HYCLATE 100MG TABLET PO SCH (21:49)
[2024-06-01] MEDS: diphenhydrAMINE 50MG CAP PO ONE (21:49)
[2024-06-01] MEDS: HEPARIN SOD (PORCINE) 5000UNITS/ML 1ML VIAL/SYRINGE SC SCH (21:54)
[2024-06-01 22:05] LABS: PROCALCITONIN 0.11 ng/ml
[2024-06-01 22:06] LABS: BLOOD UREA NITROGEN 9 MG/DL (9-23); CALCIUM LEVEL 8.5 MG/DL (8.3-10.6); CARBON DIOXIDE LEVEL 28 MMOL/L (20-31); CHLORIDE LEVEL 106 MMOL/L (98-107); CREATININE FOR GFR 0.95 MG/DL (0.55-1.30); GLOMERULAR FILTRATION RATE > 60.0 (>39); GLUCOSE, FASTING 114 MG/DL (74-106); MAGNESIUM LEVEL 1.5 MG/DL (1.8-2.4); POTASSIUM SERUM 3.5 MMOL/L (3.5-5.1); SODIUM LEVEL 142 MMOL/L (136-145)
[2024-06-02 00:57] LABS: CALCIUM LEVEL 8.8 MG/DL (8.3-10.6); CREATININE FOR GFR 0.96 MG/DL (0.55-1.30); GLOMERULAR FILTRATION RATE 59.8 (>39); POTASSIUM SERUM 3.6 MMOL/L (3.5-5.1)
[2024-06-02] MEDS: PIPERACILLIN/TAZOBACTAM SOD 4.5 GM in DEXTROSE 5% (D5W) ADV/MINI-BAG 50 ML IV SCH ×2 (01:06→22:06)
[2024-06-02] MEDS: ONDANSETRON 4MG ORAL DISINTEGRATING TAB PO PRN (04:40)
[2024-06-02] MEDS: POTASSIUM CHLORIDE 10MEQ SR TABLET PO ONE (08:33)
[2024-06-02] MEDS: NS 1,000 ML IV SCH (08:33)
[2024-06-02] MEDS: MAG SULF 1GM/100ML (MAG RUN) 1 GM in IV 1 EA IV SCH (08:34)
[2024-06-02 12:34] LABS: BASO # 0.1 10^3/uL (0.0-0.2); BASO % 0.5 % (0.0-1.0); EOS # 0.1 10^3/uL (0.0-0.5); EOS % 0.8 % (0.0-3.0); HEMOGLOBIN 13.7 g/dl (12.0-15.5); LYMPH # 2.8 10^3/uL (1.5-5.0); LYMPH % 24.4 % (24.0-44.0); MEAN CORPUSCULAR HEMOGLOBIN 31.6 pg (27.0-33.0); MEAN CORPUSCULAR HGB CONC 34.3 g/dl (32.0-36.5); MEAN CORPUSCULAR VOLUME 92.2 fl (80.0-96.0); MONO # 0.7 10^3/uL (0.0-0.8); MONO % 5.8 % (2.0-8.0); NEUTROPHILS # 7.9 10^3/uL (1.5-8.5); NEUTROPHILS % 67.6 % (36.0-66.0); PLATELET COUNT, AUTOMATED 236 10^3/uL (150-450); RED BLOOD COUNT 4.34 10^6/uL (4.00-5.40); WHITE BLOOD COUNT 11.6 10^3/uL (4.0-10.0)
[2024-06-02 13:06] LABS: CALCIUM LEVEL 8.9 MG/DL (8.3-10.6); CREATININE FOR GFR 1.05 MG/DL (0.55-1.30); MAGNESIUM LEVEL 2.5 MG/DL (1.8-2.4); POTASSIUM SERUM 3.6 MMOL/L (3.5-5.1)
[2024-06-02 13:50] VITALS: BP 162/84; TEMP 97.5; O2SAT 94
[2024-06-02] MEDS ORDERED: NS 1,000 ML IV SCH (16:05)
[2024-06-02] MEDS ORDERED: amLODIPine 5 MG TAB PO ONE (17:55)
[2024-06-02 20:02] VITALS: BP 129/68; TEMP 97.3; O2SAT 93
[2024-06-02 20:15] VITALS: BP 117/60; TEMP 97.9; O2SAT 93
[2024-06-03 01:00] VITALS: O2SAT 84
[2024-06-03 01:05] VITALS: O2SAT 93
[2024-06-03 03:47] VITALS: BP 144/72; TEMP 96.6; O2SAT 93
[2024-06-03] MEDS: NS 1,000 ML IV SCH (03:49)
[2024-06-03 06:19] LABS: BASO # 0.1 10^3/uL (0.0-0.2); BASO % 0.6 % (0.0-1.0); EOS # 0.1 10^3/uL (0.0-0.5); EOS % 1.2 % (0.0-3.0); HEMATOCRIT 34.2 % (36.0-47.0); HEMOGLOBIN 11.8 g/dl (12.0-15.5); LYMPH % 32.5 % (24.0-44.0); MEAN CORPUSCULAR HEMOGLOBIN 31.6 pg (27.0-33.0); MEAN CORPUSCULAR HGB CONC 34.5 g/dl (32.0-36.5); MEAN CORPUSCULAR VOLUME 91.7 fl (80.0-96.0); MONO # 0.6 10^3/uL (0.0-0.8); MONO % 6.4 % (2.0-8.0); NEUTROPHILS # 5.4 10^3/uL (1.5-8.5); NEUTROPHILS % 58.5 % (36.0-66.0); PLATELET COUNT, AUTOMATED 182 10^3/uL (150-450); RED BLOOD COUNT 3.73 10^6/uL (4.00-5.40); WHITE BLOOD COUNT 9.2 10^3/uL (4.0-10.0)
[2024-06-03 09:04] VITALS: BP 143/72
[2024-06-03] MEDS: amLODIPine 5 MG TAB PO SCH (09:04)
[2024-06-03] MEDS ORDERED: AMOXTAB PO (11:56)
[2024-06-03] MEDS ORDERED: PROBCAP14 PO (11:56)
[2024-06-03] MEDS ORDERED: DOXY100T PO (11:56)
[2024-06-03] MEDS ORDERED: AMLO1TAB24 PO (11:58)
[2024-06-07 20:32] LABS: URINE STREP PNEUMONIAE ANTIGEN NOT DETECTED (NOT DETECT)
[2024-06-07 22:23] LABS: MYCOPLASMA PNEUMONIAE IGG 1.89 (<=0.90)
== END 2024-06-03 13:48 | disposition home or self-care (01) | DRG 194 ==
LOC: M ED 13:41 → M ED INP 18:49 → M MSPAV 06-02 13:30
PROVIDERS: ADMIT Student in an Organized Health Care Education/Training Program; ATTEND Student in an Organized Health Care Education/Training Program
DX: J18.9 Pneumonia, unspecified organism (principal); J96.11 Chronic respiratory failure with hypoxia; J44.0 Chronic obstructive pulmonary disease with (acute) lower respiratory infection; J98.11 Atelectasis; I10 Essential (primary) hypertension; E78.5 Hyperlipidemia, unspecified; L40.9 Psoriasis, unspecified; K80.20 Calculus of gallbladder without cholecystitis without obstruction; F41.9 Anxiety disorder, unspecified; R11.2 Nausea with vomiting, unspecified; E83.42 Hypomagnesemia; E87.6 Hypokalemia; Z99.81 Dependence on supplemental oxygen; Z88.8 Allergy status to other drugs, medicaments and biological substances; Z79.2 Long term (current) use of antibiotics; Z79.899 Other long term (current) drug therapy

== ENCOUNTER 2024-11-05 11:18 | Observation (INO) | payer MEDICARE ==
[~2024-11-05] VITALS: Ht 162.6 cm; Wt 54.1 kg
[~2024-11-05 11:18] MED LIST changes: +AMLO1TAB24 PO; +AMOXTAB PO; +DOXY-442 PO; -DOXY100C82 PO; +DOXY100T PO; +PROBCAP14 PO; +med rec comment
[2024-11-05 12:12] LABS: BASO % 0.3 % (0.0-1.0); EOS # 0.1 10^3/uL (0.0-0.5); EOS % 0.4 % (0.0-3.0); HEMATOCRIT 39.5 % (36.0-47.0); HEMOGLOBIN 13.5 g/dl (12.0-15.5); LYMPH # 2.1 10^3/uL (1.5-5.0); LYMPH % 13.5 % (24.0-44.0); MEAN CORPUSCULAR HEMOGLOBIN 32.2 pg (27.0-33.0); MEAN CORPUSCULAR HGB CONC 34.2 g/dl (32.0-36.5); MEAN CORPUSCULAR VOLUME 94.3 fl (80.0-96.0); MONO % 6.4 % (2.0-8.0); NEUTROPHILS # 12.4 10^3/uL (1.5-8.5); NEUTROPHILS % 78.8 % (36.0-66.0); PLATELET COUNT, AUTOMATED 166 10^3/uL (150-450); RED BLOOD COUNT 4.19 10^6/uL (4.00-5.40); WHITE BLOOD COUNT 15.7 10^3/uL (4.0-10.0)
[2024-11-05 12:37] LABS: CK-MB VALUE MASS < 1.0 NG/ML (<3.6)
[2024-11-05 12:43] LABS: LIPASE 15 U/L (12-53)
[2024-11-05 12:45] LABS: AMYLASE 32 U/L (30-118)
[2024-11-05 12:46] LABS: ALKALINE PHOSPHATASE 94 U/L (35-104); ALT/SGPT 11 U/L (7.0-40); AST/SGOT 21 U/L (<34); BILIRUBIN,DIRECT 0.3 MG/DL (<0.4); BILIRUBIN,TOTAL 0.8 MG/DL (0.3-1.2); BLOOD UREA NITROGEN 9 MG/DL (9-23); CALCIUM LEVEL 8.4 MG/DL (8.3-10.6); CARBON DIOXIDE LEVEL 27 MMOL/L (20-31); CHLORIDE LEVEL 102 MMOL/L (98-107); CREATININE FOR GFR 0.95 MG/DL (0.55-1.30); GLOMERULAR FILTRATION RATE 61.3 (>39); GLUCOSE, FASTING 107 MG/DL (74-106); POTASSIUM SERUM 3.4 MMOL/L (3.5-5.1); SODIUM LEVEL 138 MMOL/L (136-145); TOTAL PROTEIN 6.6 G/DL (5.7-8.2)
[2024-11-05] MEDS ORDERED: ISOVUE-370 76% 100ML VIAL As Ordered ONE (12:50)
[2024-11-05 12:52] LABS: CPK CREATINE PHOSPHOKINASE 30 U/L (34-145); MB/CK RELATIVE INDEX 3.33 (< OR =4)
[2024-11-05] MEDS: POTASSIUM CHLORIDE 10MEQ SR TABLET PO ONE (13:00)
[2024-11-05] MEDS: ONDANSETRON 4MG 2ML VIAL IV ONE (13:01)
[2024-11-05] MEDS: NS (Normal Saline) 0.9% 1,000 ML IV SCH (13:01)
[2024-11-05 13:53] LABS: CK-MB VALUE MASS < 1.0 NG/ML (<3.6)
[2024-11-05 13:55] LABS: CPK CREATINE PHOSPHOKINASE 24 U/L (34-145); MB/CK RELATIVE INDEX 4.16 (< OR =4)
[2024-11-05] MEDS ORDERED: ACETAMINOPHEN 325 MG TAB PO PRN (16:10)
[2024-11-05] MEDS ORDERED: MOM 30ML SUSPENSION UDC PO PRN (16:10)
[2024-11-05] MEDS ORDERED: MAALOX 30 ML SUSP *UDC PO PRN (16:10)
[2024-11-05] MEDS ORDERED: IPRATROPIUM 0.5MG/ALBUTEROL 2.5MG INH SOL UD 3ML NEB PRN (16:10)
[2024-11-05] MEDS: cefTRIAXone SOD 1 GM in DEXTROSE 5% (D5W) ADV/MINI-BAG 50 ML IV ONE (16:12)
[2024-11-05] MEDS: AZITHROMYCIN 250MG TABLET PO ONE (16:12)
[2024-11-05] MEDS ORDERED: ONDA-284 PO (16:41)
[2024-11-05] MEDS ORDERED: PARO20TA3 PO (16:41)
[2024-11-05] MEDS ORDERED: [UNRECOGNIZED DRUG - CODE] PO (16:41)
[2024-11-05] MEDS ORDERED: MEMA7CAP PO (16:41)
[2024-11-05] MEDS ORDERED: HOME MED LIST COMPLETE! XX SCH (16:45)
[2024-11-05] MEDS ORDERED: ONDANSETRON 4MG ORAL DISINTEGRATING TAB PO PRN (17:00)
[2024-11-05] MEDS: IPRATROPIUM 0.5MG/ALBUTEROL 2.5MG INH SOL UD 3ML NEB SCH (19:45)
[2024-11-05] MEDS: ENALAPRIL MALEATE 10 MG TAB PO SCH (21:00)
[2024-11-05] MEDS: DOCUSATE SODIUM 100MG CAPSULE PO SCH (22:11)
[2024-11-05] MEDS: MEMANTINE 5MG TABLET (NAMENDA) PO SCH (22:11)
[2024-11-05] MEDS: guaiFENesin ER TABLET 600 MG TAB PO SCH (22:11)
[2024-11-05] MEDS: ATORVASTATIN 20 MG TAB PO SCH (22:11)
[2024-11-05] MEDS: PARoxetine 20MG TABLET PO SCH (22:11)
[2024-11-05 22:13] VITALS: BP 171/70; TEMP 98.8; O2SAT 96
[2024-11-05 23:15] VITALS: BP 135/62; TEMP 98.2; O2SAT 95
[2024-11-06 01:52] LABS: KETONE, URINE AUTO RFX NEGATIVE (NEGATIVE); LEUKOCYTE ESTERASE UR AUTO RFX NEGATIVE (NEGATIVE); NITRITE, URINE AUTO RFX NEGATIVE (NEGATIVE); RBC, URINE AUTO RFX 0 /HPF (0-3); SQUAM EPITHELIAL CELL UR AURFX 1 /HPF (0-6); WBC, URINE AUTO RFX 1 /HPF (0-3)
[2024-11-06 03:39] VITALS: BP 139/64; TEMP 97.6; O2SAT 97
[2024-11-06 05:54] LABS: BASO % 0.3 % (0.0-1.0); EOS # 0.1 10^3/uL (0.0-0.5); EOS % 0.5 % (0.0-3.0); HEMATOCRIT 33.8 % (36.0-47.0); HEMOGLOBIN 11.6 g/dl (12.0-15.5); LYMPH # 2.6 10^3/uL (1.5-5.0); MEAN CORPUSCULAR HEMOGLOBIN 32.9 pg (27.0-33.0); MEAN CORPUSCULAR HGB CONC 34.3 g/dl (32.0-36.5); MEAN CORPUSCULAR VOLUME 95.8 fl (80.0-96.0); MONO # 0.9 10^3/uL (0.0-0.8); MONO % 6.7 % (2.0-8.0); NEUTROPHILS # 9.4 10^3/uL (1.5-8.5); PLATELET COUNT, AUTOMATED 141 10^3/uL (150-450); RED BLOOD COUNT 3.53 10^6/uL (4.00-5.40); WHITE BLOOD COUNT 13.1 10^3/uL (4.0-10.0)
[2024-11-06] MEDS: AZITHROMYCIN INJ 500 MG, VIAL MATE ADAPTER 1 EACH in NS 250 ML IV SCH (06:12)
[2024-11-06 06:17] LABS: CREATININE FOR GFR 1.03 MG/DL (0.55-1.30); GLOMERULAR FILTRATION RATE 55.7 (>39); MAGNESIUM LEVEL 1.7 MG/DL (1.8-2.4); POTASSIUM SERUM 3.7 MMOL/L (3.5-5.1)
[2024-11-06] MEDS ORDERED: MAG SULF 1GM/100ML (MAG RUN) 1 GM in IV 1 EA IV ONE (07:00)
[2024-11-06 08:06] VITALS: BP 123/57; TEMP 96.9; O2SAT 95
[2024-11-06 08:07] VITALS: BP 126/69
[2024-11-06] MEDS: ENOXAPARIN 40MG/0.4ML SYRINGE (J1650 PER 10MG) SC SCH (08:07)
[2024-11-06] MEDS: CEFDINIR 300 MG CAP (OMNICEF) PO SCH (09:41)
[2024-11-06] MEDS: MAGNESIUM OXIDE 400MG TAB (MAG-OX) PO ONE (09:42)
[2024-11-06] MEDS ORDERED: AZIT-12 PO (09:55)
[2024-11-06] MEDS ORDERED: CEFD300CAP PO (09:55)
[2024-11-06] MEDS ORDERED: cefTRIAXone SOD 1 GM in DEXTROSE 5% (D5W) ADV/MINI-BAG 50 ML IV SCH (16:00)
[2024-11-07] MEDS ORDERED: AZITHROMYCIN 250MG TABLET PO SCH (09:00)
== END 2024-11-06 13:03 | disposition home or self-care (01) ==
LOC: EDBD 11:18 → M ED 11:18 → M ED INP 11:19 → M PCU 21:44
PROVIDERS: ADMIT Internal Medicine; ATTEND Internal Medicine
DX: J18.9 Pneumonia, unspecified organism (principal); E83.42 Hypomagnesemia; E87.6 Hypokalemia; R11.2 Nausea with vomiting, unspecified; D72.829 Elevated white blood cell count, unspecified; J44.9 Chronic obstructive pulmonary disease, unspecified; J96.11 Chronic respiratory failure with hypoxia; Z99.81 Dependence on supplemental oxygen; F03.90 Unspecified dementia, unspecified severity, without behavioral disturbance, psychotic disturbance, mood disturbance, and anxiety; I10 Essential (primary) hypertension; E78.5 Hyperlipidemia, unspecified; L40.9 Psoriasis, unspecified; K57.90 Diverticulosis of intestine, part unspecified, without perforation or abscess without bleeding; K76.89 Other specified diseases of liver; K80.20 Calculus of gallbladder without cholecystitis without obstruction; R16.1 Splenomegaly, not elsewhere classified; N20.0 Calculus of kidney; I70.0 Atherosclerosis of aorta; Z88.3 Allergy status to other anti-infective agents; Z79.899 Other long term (current) drug therapy
CPT/HCPCS: 36415; 70450; 71046; 74177; 80048; 80076; 81001; 82150; 82550; 82553; 83690; 83735; 84145; 84484; 85025; 87040; 87486; 87581; 87633; 87798; 87880; 93005; 93041; 94640; 96365; 96372; 96375; 96376; 99285; G0378; J0456; J0696; J1650; J2405; Q9967